=== PATIENT | male | born 1990 | race Caucasian/White ===

== ENCOUNTER 2016-11-29 15:18 | Emergency (ER) | payer BC, OTHER ==
[2016-11-29 15:34] VITALS: BP 137/74; PULSE 91; RESP 18; TEMP 99.5
[2016-11-29] MEDS ORDERED: HYDROcodone/APAP 5-325MG 1 EACH TAB PO STA (15:41)
[2016-11-29] MEDS ORDERED: ACET/COD 300 MG/30 MG STARTER PACK 6 TAB BTL PO STA (15:45)
--- NOTE | 2016-11-29 15:45 | ED ---
ENT HPI - General Chief complaint: Dental/Oral Stated complaint: dental pain Time Seen by Provider: 11/29/16 15:36 Source: patient Mode of arrival: ambulatory Limitations: no limitations - History of Present Illness Initial comments: 26-year-old male patient presents for evaluation of left upper dental pain. Patient states that the tooth has been bothering him on and off for the last 2 months. Patient states that he was seen at the dentist a few days ago was told that he had a infection in his left upper wisdom tooth. Patient states that his insurance was cut off at that time and they're unable to complete the office visit or provide care in any way. Patient states that the pain has been bothering him and he did have to call in to work this weekend. He states that occasionally does have facial swelling. He states the pain is a constant throbbing pain. He denies any fever, chills, difficulty swallowing, difficulty opening or closing his mouth. He states that he has a lot of dental issues and needs extensive dental work. Patient denies any recent fever, chills, shortness breath, chest pain, abdominal pain, nausea, vomiting, diarrhea, constipation, back pain, numbness, tingling, headache, visual changes, hematuria , dysuria, urinary frequency, urinary urgency, or any other complaints. - Related Data Previous Rx's Medication Instructions Recorded Ibuprofen 800 mg PO TID PRN #30 tablet 11/29/16 Penicillin V Potassium [Pen Vee K] 500 mg PO QID #40 tab 11/29/16 Allergies Allergy/AdvReac Type Severity Reaction Status Date / Time aripiprazole [From Abilify] Allergy Unknown Verified 11/29/16 15:34 codeine Allergy Unknown Verified 11/29/16 15:34 ziprasidone HCl [From Geodon] Allergy Unknown Verified 11/29/16 15:34 ziprasidone mesylate Allergy Unknown Verified 11/29/16 15:34 [From Geodon] Review of Systems ROS Statement: Those systems with pertinent positive or pertinent negative responses have been documented in the HPI. ROS Other: All systems not noted in ROS Statement are negative. Past Medical History Past Medical History: No Reported History History of Any Multi-Drug Resistant Organisms: None Reported Past Surgical History: No Surgical Hx Reported Past Psychological History: Bipolar, Schizoaffective Disorder Smoking Status: Current every day smoker Past Alcohol Use History: None Reported Past Drug Use History: Cocaine, Heroin, Marijuana General Exam Limitations: no limitations General appearance: alert, in no apparent distress Head exam: Present: atraumatic, normocephalic, normal inspection Eye exam: Present: normal appearance, PERRL, EOMI. Absent: scleral icterus, conjunctival injection, periorbital swelling ENT exam: Present: normal exam, normal oropharynx, mucous membranes moist, other (Discoloration and caries noted to the teeth in the left upper mouth. Minimal gingival erythema. No facial swelling noted, no area of drainable abscess.) Neck exam: Present: normal inspection, full ROM. Absent: tenderness, meningismus, lymphadenopathy Respiratory exam: Present: normal lung sounds bilaterally. Absent: respiratory distress, wheezes, rales, rhonchi, stridor Cardiovascular Exam: Present: regular rate, normal rhythm, normal heart sounds. Absent: systolic murmur, diastolic murmur, rubs, gallop, clicks Neurological exam: Present: alert, oriented X3, CN II-XII intact Psychiatric exam: Present: normal affect, normal mood Skin exam: Present: warm, dry, intact, normal color. Absent: rash Course Vital Signs 11/29/16 15:31 Temperature 99.5 F Pulse Rate 91 Respiratory 18 Rate Blood Pressure 137/74 O2 Sat by Pulse 97 Oximetry Medical Decision Making - Medical Decision Making 26 year-old male patient presents for evaluation of left upper dental pain. Patient was in to see the dentist however they were unable to help him due to his insurance being cut off. Physical exam did reveal poor dentition including dental caries to the left upper teeth. There was no area of drainable abscess identified. Patient will be given a prescription for penicillin. He'll also be given a starter pack of Tylenol 3 and told to use these sparingly for severe pain. He will be given a prescription for ibuprofen 800 mg. He is instructed to take these with food. He is instructed to follow-up with a dentist as soon as possible. He was given information for the dental clinic in [place]. He is instructed to follow up with his primary care physician for recheck in 1-2 days. He is instructed to return here immediately for any new, worsening, or concerning symptoms. Patient verbalizes understanding and agrees with this plan. Disposition Clinical Impression: Pain, dental Disposition: HOME SELF-CARE Condition: Good Instructions: Dental Caries (ED), Toothache (ED) Additional Instructions: Warm compresses to the face, swished with ice water. Take pain medication as directed. Follow up with her primary care physician or dentist for any further pain prescriptions. Complete antibiotics and full. Please follow up with the [facility] dental clinic. [facility] [place] [address]. Phone number for new patients or [phone] for existing patients. Return here for any new, worsening, or concerning symptoms. Prescriptions: Ibuprofen 800 mg PO TID PRN #30 tablet PRN Reason: Pain Penicillin V Potassium [Pen Vee K] 500 mg PO QID #40 tab Referrals: None,Stated [Primary Care Provider] - 1-2 days Time of Disposition: 15:44
== END 2016-11-29 16:06 | disposition home or self-care (01) ==
LOC: EC 15:18
DX: K08.89 Other specified disorders of teeth and supporting structures (principal); F17.200 Nicotine dependence, unspecified, uncomplicated; Z88.5 Allergy status to narcotic agent; Z88.8 Allergy status to other drugs, medicaments and biological substances; Z53.8 Procedure and treatment not carried out for other reasons
CPT/HCPCS: 99282

== ENCOUNTER 2016-12-22 00:56 | Emergency (ER) | payer SELFPAY ==
[2016-12-22] MEDS ORDERED: DIAZEPAM 5 MG/ML 2 ML INJ IM ONE (01:50)
--- NOTE | 2016-12-22 04:46 | ED ---
Psych HPI - General Source: patient, police Mode of arrival: ambulatory - History of Present Illness MD Complaint: suicidal ideation -: hour(s) Associated Psychiatric Symptoms: depression, suicidal ideation History of same: Yes Quality: constant Improves With: none Worsens With: none Context: recent drug abuse Associated Symptoms: denies other symptoms <Jos Harding - Last Filed: 12/22/16 04:42> <Lala Marin - Last Filed: 12/22/16 13:54> - General Chief Complaint: Psychiatric Symptoms Stated Complaint: mental health Time Seen by Provider: 12/22/16 00:59 - History of Present Illness Initial Comments: This patient is 26-year-old man brought in by [facility]. The patient had called the third floor psychiatric department, and had told the psychiatric nurse that he was having suicidal ideation. He had allegedly called them twice. The patient currently is denying suicidal ideation and is not forthcoming about what had happened earlier. The patient states that he had taken some LSD. (Jos Harding) - Related Data Home Medications Medication Instructions Recorded Confirmed No Known Home Medications [No 12/22/16 12/22/16 Known Home Medications] Allergies Allergy/AdvReac Type Severity Reaction Status Date / Time aripiprazole [From Abilify] Allergy Unknown Verified 12/22/16 01:01 codeine Allergy Unknown Verified 12/22/16 01:01 ziprasidone HCl [From Geodon] Allergy Unknown Verified 12/22/16 01:01 ziprasidone mesylate Allergy Unknown Verified 12/22/16 01:01 [From Geodon] Review of Systems ROS Other: All systems not noted in ROS Statement are negative. Respiratory: Denies: cough, dyspnea Cardiovascular: Denies: chest pain, syncope Gastrointestinal: Denies: abdominal pain, nausea Musculoskeletal: Denies: back pain Neurological: Denies: headache Psychiatric: Reports: as per HPI, suicidal thoughts <Jos Harding - Last Filed: 12/22/16 04:42> ROS Other: All systems not noted in ROS Statement are negative. <Lala Marin - Last Filed: 12/22/16 13:54> ROS Statement: Those systems with pertinent positive or pertinent negative responses have been documented in the HPI. Past Medical History Past Medical History: No Reported History History of Any Multi-Drug Resistant Organisms: None Reported Past Surgical History: No Surgical Hx Reported Past Psychological History: Bipolar, Schizoaffective Disorder Smoking Status: Current every day smoker Past Alcohol Use History: None Reported Past Drug Use History: Cocaine, Heroin, Marijuana <Jos Harding - Last Filed: 12/22/16 04:42> General Exam Limitations: no limitations General appearance: alert, in no apparent distress Head exam: Present: atraumatic, normocephalic Eye exam: Present: normal appearance, PERRL, EOMI. Absent: scleral icterus, conjunctival injection ENT exam: Present: normal oropharynx Neck exam: Present: normal inspection, full ROM Respiratory exam: Present: normal lung sounds bilaterally. Absent: respiratory distress, wheezes, rales, rhonchi, stridor Cardiovascular Exam: Present: regular rate, normal rhythm, normal heart sounds. Absent: systolic murmur, diastolic murmur, rubs, gallop GI/Abdominal exam: Present: soft. Absent: distended, tenderness, guarding, rebound, mass Extremities exam: Present: normal inspection, normal capillary refill. Absent: pedal edema, calf tenderness Back exam: Present: normal inspection. Absent: CVA tenderness (R), CVA tenderness (L) Neurological exam: Present: alert, oriented X3 Psychiatric exam: Present: normal affect, suicidal ideation. Absent: normal mood, agitated, anxious, flat affect, manic, homicidal ideation Skin exam: Present: warm, dry, intact, normal color. Absent: rash <MarizolJos cadet - Last Filed: 12/22/16 04:42> Course <MeaghanJos - Last Filed: 12/22/16 04:42> <Lala Marin - Last Filed: 12/22/16 13:54> Vital Signs 12/22/16 12/22/16 00:58 08:00 Temperature 99.2 F 98.7 F Pulse Rate 87 86 Respiratory 20 18 Rate Blood Pressure 130/69 136/74 O2 Sat by Pulse 98 98 Oximetry He has been accepted at the [facility] facility he be transferred there for treatment today shortly (Lala Marin) Medical Decision Making - Lab Data Result diagrams: 12/22/16 04:13 12/22/16 04:13 <Lala Marin - Last Filed: 12/22/16 13:54> - Lab Data Lab Results 12/22/16 12/22/16 12/22/16 Range/Units 04:13 04:13 04:33 WBC 7.8 (3.8-10.6) k/uL RBC 5.23 (4.30-5.90) m/uL Hgb 16.0 (13.0-17.5) gm/dL Hct 47.5 (39.0-53.0) % MCV 90.8 (80.0-100.0) fL MCH 30.5 (25.0-35.0) pg MCHC 33.6 (31.0-37.0) g/dL RDW 15.0 (11.5-15.5) % Plt Count 203 (150-450) k/uL Neutrophils % 67 % Lymphocytes % 21 % Monocytes % 8 % Eosinophils % 2 % Basophils % 1 % Neutrophils # 5.2 (1.3-7.7) k/uL Lymphocytes # 1.6 (1.0-4.8) k/uL Monocytes # 0.6 (0-1.0) k/uL Eosinophils # 0.1 (0-0.7) k/uL Basophils # 0.0 (0-0.2) k/uL Sodium 140 (137-145) mmol/L Potassium 4.0 (3.5-5.1) mmol/L Chloride 105 (98-107) mmol/L Carbon Dioxide 25 (22-30) mmol/L Anion Gap 10 mmol/L BUN 9 (9-20) mg/dL Creatinine 0.90 (0.66-1.25) mg/dL Est GFR (MDRD) Af Amer >60 (>60 ml/min/1.73 sqM) Est GFR (MDRD) Non-Af >60 (>60 ml/min/1.73 sqM) Glucose 106 H (74-99) mg/dL Calcium 9.7 (8.4-10.2) mg/dL Urine Opiates Screen Detected H (NotDetected) Ur Oxycodone Screen Not Detected (NotDetected) Urine Methadone Screen Not Detected (NotDetected) Ur Propoxyphene Screen Not Detected (NotDetected) Ur Barbiturates Screen Not Detected (NotDetected) U Tricyclic Antidepress Not Detected (NotDetected) Ur Phencyclidine Scrn Not Detected (NotDetected) Ur Amphetamines Screen Not Detected (NotDetected) U Methamphetamines Scrn Not Detected (NotDetected) U Benzodiazepines Scrn Detected H (NotDetected) Urine Cocaine Screen Not Detected (NotDetected) U Marijuana (THC) Screen Detected H (NotDetected) Disposition <Jos Harding - Last Filed: 12/22/16 04:42> <Lala Marin - Last Filed: 12/22/16 13:54> Clinical Impression: Mood disorder, Suicidal ideation Disposition: TRANSFER TO PSYCH HOSP/UNIT Condition: Fair Referrals: None,Stated [Primary Care Provider] - 1-2 days
[2016-12-22 05:06] LABS: Anion Gap 10 mmol/L; Blood Urea Nitrogen 9 mg/dL (9-20); Calcium 9.7 mg/dL (8.4-10.2); Carbon Dioxide 25 mmol/L (22-30); Chloride 105 mmol/L (98-107); Glucose 106 mg/dL (74-99); Non-African American GFR(MDRD) >60 (>60 ml/min/1.73 sqM); Sodium 140 mmol/L (137-145)
[2016-12-22] MEDS: risperiDONE ODT 2 MG TAB PO STA ×2 (05:30→05:33)
[2016-12-22 05:56] LABS: Basophils % (A) 1 %; CH 31.8; CHCM 35.2; Eosinophils # (A) 0.1 k/uL (0-0.7); Eosinophils % (A) 2 %; HCT 47.5 % (39.0-53.0); HDW 2.71; Luc # (Auto) 0.13; Luc % (Auto) 2; Lymphocytes # (A) 1.6 k/uL (1.0-4.8); Lymphocytes % (A) 21 %; MCH 30.5 pg (25.0-35.0); MCHC 33.6 g/dL (31.0-37.0); MCV 90.8 fL (80.0-100.0); Monocytes # (A) 0.6 k/uL (0-1.0); Monocytes % (A) 8 %; Neutrophils # (A) 5.2 k/uL (1.3-7.7); Neutrophils % (A) 67 %; RBC 5.23 m/uL (4.30-5.90); WBC 7.8 k/uL (3.8-10.6); WBC (Perox) 7.86
[2016-12-22 14:20] VITALS: BP 122/74; PULSE 80; RESP 20; TEMP 98.5
== END 2016-12-22 14:21 ==
LOC: EC 00:56
DX: R45.851 Suicidal ideations (principal); F32.9 Major depressive disorder, single episode, unspecified; F17.200 Nicotine dependence, unspecified, uncomplicated; F25.0 Schizoaffective disorder, bipolar type; Z88.5 Allergy status to narcotic agent; Z88.8 Allergy status to other drugs, medicaments and biological substances; Z53.20 Procedure and treatment not carried out because of patient's decision for unspecified reasons
CPT/HCPCS: 99285 ×2; 96372 ×2; 82075; 36415; 80048; 85025; 80306; J3360